=== PATIENT | male | born 1945 | race Caucasian/White ===

== ENCOUNTER 2017-02-15 13:38 | Inpatient (IN) ==
[2017-02-15] MEDS ORDERED: Ipratropium/Albuterol Neb 3 ML ONE (13:49)
[2017-02-15] MEDS ORDERED: Ipratropium/Albuterol Neb 3 ML IH ONE (13:49)
[2017-02-15] MEDS ORDERED: Aspirin 81 MG TAB.CHEW PO ONE (13:51)
--- NOTE | 2017-02-15 14:01 | Emergency Department Note ---
Disposition Clinical Impression: Hypoxia Pulmonary embolism Qualifiers: Pulmonary embolism type: other Chronicity: acute Acute cor pulmonale presence: without acute cor pulmonale Qualified Code(s): I26.99 - Other pulmonary embolism without acute cor pulmonale Disposition: Admitted As Inpatient Condition: Serious Referrals: Gurwinder Lopez MD [Primary Care Provider] - Forms: ED Satisfaction Letter Time of Disposition: 19:28 SOB HPI - General Chief Complaint: ED Shortness of Breath/Dyspnea Stated Complaint: ARTEMIO Time Seen by Provider: 02/15/17 13:41 Nursing Notes Reviewed: Yes Vital Signs Reviewed: Yes - History of Present Illness Patient is 71-year-old male presents secondary to 3 days of difficulty breathing and shortness of breath without chest pain. EMS states patient was hypoxic at 72% on room air. Patient was placed on oxygen via nonrebreather and O2 sats were increased to 100%. Patient has a history of CABG 5 months ago at [facility] by Dr. Sanchez cardiothoracic surgeon. - Related Data Home Medications Medication Instructions Recorded Confirmed Aspirin Enteric Coated [Aspirin EC] 81 mg PO DAILY 02/15/17 02/15/17 Atorvastatin Calcium [Lipitor] 80 mg PO HS 02/15/17 02/15/17 Buspirone HCl [Buspar] 5 mg PO BID 02/15/17 02/15/17 Famotidine [Pepcid] 40 mg PO DAILY 02/15/17 02/15/17 Finasteride [Proscar] 5 mg PO DAILY 02/15/17 02/15/17 Isosorbide MONOnitrate (24 HR) 60 mg PO DAILY 02/15/17 02/15/17 [Imdur] L. Acidophilus/Pectin, [place] 1 each PO DAILY 02/15/17 02/15/17 [Acidophilus Probiotic Capsule] Metoprolol XL (24 HR) Succ [Toprol 50 mg PO DAILY 02/15/17 02/15/17 XL] Mirtazapine [Remeron] 15 mg PO HS 02/15/17 02/15/17 Pantoprazole Sodium [Protonix] 40 mg PO DAILY 02/15/17 02/15/17 Sertraline [Zoloft] 100 mg PO DAILY 02/15/17 02/15/17 Sulfasalazine [Azulfidine] 1,000 mg PO TID 02/15/17 02/15/17 Tamsulosin [Flomax] 0.4 mg PO DAILY 02/15/17 02/15/17 clonazePAM [Klonopin] 0.5 mg PO BID PRN 02/15/17 02/15/17 Allergies Allergy/AdvReac Type Severity Reaction Status Date / Time No Known Allergies Allergy Verified 11/26/16 14:43 All systems ED: reviewed and negative except as stated. Review of Systems: As Per HPI Constitutional: Denies: fever, chills, weakness Eyes: Denies: vision change ENT ED: Denies: congestion Cardiovascular: Reports: dyspnea on exertion. Denies: chest pain, palpitations Respiratory: Denies: cough Gastrointestinal: Denies: abdominal pain, nausea, vomiting, diarrhea, hematemesis, melena, hematochezia Genitourinary: Denies: urgency Musculoskeletal: Denies: back pain, neck pain Neurological: Denies: headache Psychiatric: Reports: anxiety Endocrine: Reports: fatigue Past Medical History - Past Medical History Attestation: Yes The following information was validated with the patient. Medical history: Reports: coronary artery disease, hyperlipidemia, hypertension , myocardial infarction Surgical history: Reports: coronary bypass (CABG) Psychiatric history: Reports: depression - Social History Smoking Status: Former smoker Smokeless Tobacco Status: No Alcohol use: Reports: none Drug use: Reports: none Physical Exam Vital Signs Temperature 98.6 F 02/15/17 13:45 Pulse Rate 79 02/15/17 13:45 Respiratory Rate 20 02/15/17 13:45 Blood Pressure 108/75 02/15/17 13:45 O2 Sat by Pulse Oximetry 97 02/15/17 13:45 Temperature 98.6 F 02/15/17 13:45 Pulse Rate 67 02/15/17 15:03 Respiratory Rate 12 02/15/17 15:03 Blood Pressure 156/83 02/15/17 15:03 O2 Sat by Pulse Oximetry 94 02/15/17 15:03 Oxygen Delivery Oxygen Delivery Nasal Cannula 31-year-old male who is alert and oriented 3 and is in acute distress secondary to shortness of breath. Patient has conversational dyspnea and O2. Patient's O2 sat shows 100% on nonrebreather. Patient has no chest wall tenderness. Patient has no pallor. Patient has no diaphoresis. he is nontoxic appearing. Patient has no lip cyanosis. - General Limitations: no limitations General appearance: alert - Head Head exam: atraumatic, normocephalic, normal inspection - Eye Eye exam: Present: normal appearance, PERRL, EOMI - ENT ENT exam: normal exam, normal oropharynx, mucous membranes moist - Neck Neck exam: Present: normal inspection, full ROM, trachea midline. Absent: tenderness, lymphadenopathy - Chest Chest inspection: Present: normal inspection, symmetric chest wall rise Course Vital Signs Temperature 98.6 F 02/15/17 13:45 Pulse Rate 79 02/15/17 13:45 Respiratory Rate 20 02/15/17 13:45 Blood Pressure 108/75 02/15/17 13:45 O2 Sat by Pulse Oximetry 97 02/15/17 13:45 Temperature 98.6 F 02/15/17 13:45 Pulse Rate 65 02/15/17 19:27 Respiratory Rate 16 02/15/17 16:58 Blood Pressure 155/82 02/15/17 19:27 O2 Sat by Pulse Oximetry 93 02/15/17 19:27 Oxygen Delivery Oxygen Delivery Room Air Shortness of Breath/Dyspnea - [facility] Narrative Medical decision making narrative: Patient presents with sudden onset of shortness of breath over the past 3 days by EMS today secondary to severe hypoxia 72% O2 sat. He has a history of CABG and appears short of breath on exam. Patient has no history of COPD as heavily concerning for PE, aortoenteric fistula, ACS/WV, heart failure. CT angiogram of chest was ordered which showed a large clot burden PE. Echocardiogram was ordered, in the meantime we spoke to magazine filler Dr. Herrera who came and examined the patient and states that as long as patient does not show any heart strain on echo then patient can be started on heparin and be admitted to 2 . Patient's labs show an anemia but his hemoglobin of 12.8 which is much better than previous hemoglobin level. Patient has no other abnormalities CBC, BMP and has a negative troponin as well. No signs ischemia on EKG Imaging results: Echo: Echocardiogram 02/15/17 15:20 Impressions: Technically challenging study with suboptimal windows. Overall, LV systolic function appears low normal, EF 50%. PLAX measurements were not well obtained. Visually, there is increased LV wall thickness. Mild left ventricular diastolic dysfunction. RV is poorly visualized. Function may be normal (normal function in PLAX view, normal Lat S [place]) but is not well visualized in the apical or subcostal views. Size is not well evaluated. Mild aortic regurgitation. Mild tricuspid regurgitation. Mild pulmonary hypertension. Patient started on heparin bolus and drip, and accepts decision for admission Patient has been accepted for admission by hospitalist Dr. Stevens to 2 N. 60 minutes of critical care time spent on this admission. - Lab Data Lab results reviewed: Yes I reviewed the patient's lab results. Lab results narrative: Short CBC 02/15/17 Range/Units 13:55 WBC 8.5 (4.3-11.1) K/mcL Hgb 12.4 L (12.9-16.9) g/dL Hct 38.4 (37.5-50.1) % Plt Count 257 (140-400) K/mcL Neutrophils # 6.3 (1.6-8.9) K/mcL BMP 02/15/17 Range/Units 13:55 Sodium 136 (136-145) mEq/L Potassium 4.0 (3.5-4.5) mEq/L Chloride 100 (98-109) mEq/L Carbon Dioxide 30 H (19-29) mEq/L BUN 11 (8-26) mg/dL Creatinine 1.13 (0.72-1.25) mg/dL Glucose 113 H (70-99) mg/dL Calcium 9.4 (8.6-10.8) mg/dL Cardiac Enzymes 02/15/17 Range/Units 13:55 Troponin I 0.02 (0-0.03) ng/mL Urine 02/15/17 Range/Units 14:06 Urine Color Yellow (Yellow) Urine Clarity Cloudy A (Clear) Urine pH 7.0 (5.0-8.0) pH Units Ur Specific [place] 1.017 (1.010-1.025) Urine Protein Negative (Neg-Trace) mg/dL Urine Glucose (UA) Normal (Normal) mg/dL Result diagrams: 02/15/17 13:55 02/15/17 13:55 Lab Results 02/15/17 02/15/17 02/15/17 Range/Units 13:55 13:55 13:55 WBC 8.5 (4.3-11.1) K/mcL RBC 4.33 (4.19-5.50) M/mcL Hgb 12.4 L (12.9-16.9) g/dL Hct 38.4 (37.5-50.1) % MCV 88.7 (83.0-100.0) fL MCH 28.6 (28.0-33.3) pg MCHC 32.3 (31.6-35.5) g/dL RDW 15.6 H (11.5-14.5) % Plt Count 257 (140-400) K/mcL MPV 9.6 (9.4-12.4) fL Immature Gran % 0.9 (0-4) % Seg Neutrophils % 73.8 % Lymphocytes % 13.0 % Monocytes % 9.7 % Eosinophils % 1.8 % Basophils % 0.8 % Neutrophils # 6.3 (1.6-8.9) K/mcL Lymphocytes # 1.1 (0.6-4.6) K/mcL Monocytes # 0.8 (0.0-1.3) K/mcL Eosinophils # 0.2 (0.0-0.6) K/mcL Basophils # 0.1 (0.0-0.2) K/mcL PT 12.3 H (9.4-12.1) Seconds INR 1.1 APTT 34.4 (26.0-36.0) Seconds Sodium 136 (136-145) mEq/L Potassium 4.0 (3.5-4.5) mEq/L Chloride 100 (98-109) mEq/L Carbon Dioxide 30 H (19-29) mEq/L BUN 11 (8-26) mg/dL Creatinine 1.13 (0.72-1.25) mg/dL Est GFR ( Amer) > 60 (> 60) Est GFR (Non-Af Amer) > 60 (> 60) BUN/Creatinine Ratio 10 (6-26) Glucose 113 H (70-99) mg/dL Calculated Osmolality 282 (280-300) Calcium 9.4 (8.6-10.8) mg/dL Troponin I (0-0.03) ng/mL B-Natriuretic Peptide (0-100) pg/mL Urine Color (Yellow) Urine Clarity (Clear) Urine pH (5.0-8.0) pH Units Ur Specific [place] (1.010-1.025) Urine Protein (Neg-Trace) mg/dL Urine Glucose (UA) (Normal) mg/dL Urine Ketones (Negative) mg/dL Urine Blood (Negative) Urine Nitrite (Negative) Urine Bilirubin (Negative) Urine Urobilinogen (Normal) mg/dL Ur Leukocyte Esterase (Negative) Urine Microscopic RBC (0-3) per hpf Urine Microscopic WBC (0-3) per hpf Ur Squamous Epith Cells (None-Few) per lpf Urine Bacteria (None-Few) per hpf Hyaline Casts (None-Few) per lpf Ur Culture Indicated? (NO) 02/15/17 02/15/17 02/15/17 Range/Units 13:55 13:55 14:06 WBC (4.3-11.1) K/mcL RBC (4.19-5.50) M/mcL Hgb (12.9-16.9) g/dL Hct (37.5-50.1) % MCV (83.0-100.0) fL MCH (28.0-33.3) pg MCHC (31.6-35.5) g/dL RDW (11.5-14.5) % Plt Count (140-400) K/mcL MPV (9.4-12.4) fL Immature Gran % (0-4) % Seg Neutrophils % % Lymphocytes % % Monocytes % % Eosinophils % % Basophils % % Neutrophils # (1.6-8.9) K/mcL Lymphocytes # (0.6-4.6) K/mcL Monocytes # (0.0-1.3) K/mcL Eosinophils # (0.0-0.6) K/mcL Basophils # (0.0-0.2) K/mcL PT (9.4-12.1) Seconds INR APTT (26.0-36.0) Seconds Sodium (136-145) mEq/L Potassium (3.5-4.5) mEq/L Chloride (98-109) mEq/L Carbon Dioxide (19-29) mEq/L BUN (8-26) mg/dL Creatinine (0.72-1.25) mg/dL Est GFR ( Amer) (> 60) Est GFR (Non-Af Amer) (> 60) BUN/Creatinine Ratio (6-26) Glucose (70-99) mg/dL Calculated Osmolality (280-300) Calcium (8.6-10.8) mg/dL Troponin I 0.02 (0-0.03) ng/mL B-Natriuretic Peptide 228 H (0-100) pg/mL Urine Color Yellow (Yellow) Urine Clarity Cloudy A (Clear) Urine pH 7.0 (5.0-8.0) pH Units Ur Specific [place] 1.017 (1.010-1.025) Urine Protein Negative (Neg-Trace) mg/dL Urine Glucose (UA) Normal (Normal) mg/dL Urine Ketones Negative (Negative) mg/dL Urine Blood Negative (Negative) Urine Nitrite Negative (Negative) Urine Bilirubin Negative (Negative) Urine Urobilinogen Normal (Normal) mg/dL Ur Leukocyte Esterase Negative (Negative) Urine Microscopic RBC 0-3 (0-3) per hpf Urine Microscopic WBC 0-3 (0-3) per hpf Ur Squamous Epith Cells Moderate H (None-Few) per lpf Urine Bacteria None Seen (None-Few) per hpf Hyaline Casts None Seen (None-Few) per lpf Ur Culture Indicated? NO (NO) - Radiology Data Radiology results reviewed: Yes I reviewed the patient's radiology results. Chest CTA 02/15/17 13:53 IMPRESSION: 1. Large pulmonary emboli in the distal main right pulmonary artery extending into the lobar and segmental branches of the right upper, middle, and lower lobes. Smaller segmental and subsegmental emboli in the left upper and lower lobes. Mildly increased RV/LV ratio as can be seen with elevated right heart pressure. 2. Enlarged main pulmonary artery as can be seen with pulmonary arterial hypertension. 3. Status post CABG. 4. Calcified pleural plaquing in the right chest as can be seen with asbestos related pleural disease versus remote hemothorax or empyema. Associated mild right lung volume loss with scarring and/or atelectasis. Findings were discussed with Dr. Zev López of the [facility] emergency department at 3:09 pm on 02/15/2017. D/ / Flako Barrios MD / Flako Barrios MD Interpreting Provider: Flako Barrios MD Echocardiogram 02/15/17 15:20 Impressions: Technically challenging study with suboptimal windows. Overall, LV systolic function appears low normal, EF 50%. PLAX measurements were not well obtained. Visually, there is increased LV wall thickness. Mild left ventricular diastolic dysfunction. RV is poorly visualized. Function may be normal (normal function in PLAX view, normal Lat S [place]) but is not well visualized in the apical or subcostal views. Size is not well evaluated. Mild aortic regurgitation. Mild tricuspid regurgitation. Mild pulmonary hypertension. Left Ventricular Wall Motion: Rest Echo Findings The apex, apical inferior, mid inferior, basal inferior, apical anterior, mid anterior, basal anterior, mid anterior septal, mid inferior lateral, basal anterior septal and basal inferior lateral olivares were not visualized. All other wall segments showed normal motion. Findings: Study Quality * Technically challenging due to body habitus. ECG Findings * Normal sinus rhythm. Left Ventricle * PLAX measurements were not well obtained. Visually, there is increased LV wall thickness. * LVEF 50%. * Mild left ventricular diastolic dysfunction. Right Ventricle * RV is poorly visualized. Function may be normal (normal function in PLAX view, normal Lat S [place]) but is not well visualized in the apical or subcostal views. Size is not well evaluated. Left Atrium * Normal left atrial size. Right Atrium * Normal right atrial size. Aortic Valve * Mild aortic regurgitation. * Aortic valve not well visualized. * No aortic stenosis. Mitral Valve * Normal mitral valve structure. * No mitral regurgitation. * No mitral stenosis. Tricuspid Valve * Tricuspid valve not well visualized. * Mild tricuspid regurgitation. * Estimated RA pressure is 3 mmHg. * Estimated RVSP is 46 mmHg. * Mild pulmonary hypertension. Pulmonic Valve * Pulmonic valve is not well visualized. * No pulmonic stenosis. * Trace pulmonic regurgitation. Pulmonary Artery * Pulmonary artery not well visualized. Aorta * Normally sized aortic root. Pericardium * There is no pericardial effusion present. Interatrial Septum * No evidence of PFO by color Doppler. IVC * Normal IVC dimensions and inspiratory collapse. - EKG Data EKG attestation: Yes I reviewed and interpreted this EKG. EKG results narrative: EKG taken 02/15/2017 at 1343 hrs. shows sinus rhythm with first-degree AV block at a rate of 73 beats recorded patient have T-wave inversions in V1, V2 and V3 not seen on previous EKG taken 09/19/2016. Both EKGs show right bundle branch block. Attestation Statement - Attestation Attestation: I, Bjorn Engle DO, examined this patient [id number] and my medical decision-making was reviewed with Dr. Zev López, Resident Physician. I agree with the documented findings, disposition and treatment plan as described except to the extent set forth below. Please see my progress notes for details.
[2017-02-15 14:05] LABS: Basophils # 0.1 K/mcL (0.0-0.2); Basophils % 0.8 %; Eosinophils # 0.2 K/mcL (0.0-0.6); Eosinophils % 1.8 %; Hematocrit 38.4 % (37.5-50.1); Hemoglobin 12.4 g/dL (12.9-16.9); Immature Granulocytes % 0.9 % (0-4); Lymphocytes # 1.1 K/mcL (0.6-4.6); Mean Corpuscular HGB Conc 32.3 g/dL (31.6-35.5); Mean Corpuscular Hemoglobin 28.6 pg (28.0-33.3); Mean Corpuscular Volume 88.7 fL (83.0-100.0); Mean Platelet Volume 9.6 fL (9.4-12.4); Monocytes # 0.8 K/mcL (0.0-1.3); Monocytes % 9.7 %; Neutrophils # 6.3 K/mcL (1.6-8.9); Platelet Count 257 K/mcL (140-400); Red Blood Count 4.33 M/mcL (4.19-5.50); Red Cell Distribution Width 15.6 % (11.5-14.5); Segmented Neutrophils % 73.8 %
[2017-02-15 14:10] LABS: INR 1.1; Prothrombin Time 12.3 Seconds (9.4-12.1)
[2017-02-15 14:13] LABS: Activated Partial Thrombo Time 34.4 Seconds (26.0-36.0)
--- NOTE | 2017-02-15 14:16 | Emergency Department Note ---
START Narrative - START START: 71-year-old male 5 months status post open heart procedure presents today for shortness of breath and hypoxia home. Symptoms began coming on over the last several days. Multiple life stressors involved including is currently having cancer treatment. See detailed documentation of this. Patient has not been doing cardiac rehabilitation. His home by EMS today with a pulse ox of 78% . Based on nonrebreather and the pulse ox came up to 100%. Denies any chest pain fevers chills nausea vomiting or diarrhea. Denies headache or vision change. No trauma or injuries. No new medications. Patient was concerned secondary to the increased work of breathing and wanted evaluation. Physical exam shows a well-appearing male does appear to be in some mild respiratory distress with mild conversational dyspnea. Lungs are clear heart is regular. Abdomen is soft nontender nondistended no pulsatile area noted. Patient was offered stimuli difficulty. Positionally the patient does have dyspnea and orthopnea. Breathing treatments to be provided at this time as well as cardiac evaluation. Initial EKG was interpreted by myself showing several abnormalities with a computer read the possibility of an anterior lateral myocardial infarction but after detailed review from previous EKG on 09/19/16 patient has what appears to be similar morphology there is no visible signs of acute ST segment elevation or reciprocal depression noted on evaluation at this time. Patient is denying chest pain this time his main complaint was shortness of breath. We will continue to monitor the emergency room and treat symptoms as appropriate dispositional mostly be admission for definitive management. See detailed documentation the physical exam, medical intervention, medical decision-making, consultations and critical care and disposition and the resident physician's note 1500 Patient found to have massive PE with proximal occlusion of the right pulmonary artery as well as several segmental branches in the left upper and lower lobes of the lung. Consultation postoperative the certified personal chef at this time. Hemodynamics been stable here patient's pulse ox is been regulated normal his breathing is controlled and unlabored. There is concern for right heart strain based on the evaluation by CT angiography. Stat echocardiogram ordered as well as initial conversation with the pharmacist about TPA dosing for PE. Clinically patient is resting comfortably at this point will determine PE treatment with thrombolytics versus heparinization after conversation with the certified personal chef is completed. Patient will be staying in the hospital after treatment course is completed. 1600 ICU attending in the emergency room this time discussing the presentation symptoms with the family. He did not recommend TPA at this time. He is comfortable with the patient starting on heparin and staying at this facility. He only recommended TPA at the patient had hemodynamic instability. Patient is otherwise resting comfortably in the bed. We will continue to monitor here. Echo still pending. He will also make that determination after the echo is resulted. 1734 Echo shows no significant functional dilation of the right ventricle. Clinically difficult as based on the results. Patient will be admitted to the hospitalist at this time for definitive treatment course.
[2017-02-15 14:17] LABS: BUN/Creatinine Ratio 10 (6-26); Blood Urea Nitrogen 11 mg/dL (8-26); Calcium 9.4 mg/dL (8.6-10.8); Carbon Dioxide 30 mEq/L (19-29); Chloride 100 mEq/L (98-109); Glucose 113 mg/dL (70-99); Osmolality,Calculated 282 (280-300); Sodium 136 mEq/L (136-145); eGFR For African Americans > 60 (> 60); eGFR For Non-African Americans > 60 (> 60)
[2017-02-15 14:23] LABS: Bilirubin,Urine Negative (Negative); Blood,Urine Negative (Negative); Clarity,Urine Cloudy (Clear); Color,Urine Yellow (Yellow); Glucose,Urine (UA) Normal (Normal); Ketones,Urine Negative (Negative); Leukocyte Esterase,Urine Negative (Negative); Nitrite,Urine Negative (Negative); Protein,Urine Negative (Neg-Trace); Specific Gravity,Urine 1.017 (1.010-1.025); Urobilinogen,Urine Normal (Normal)
[2017-02-15 14:25] LABS: Bacteria,Urine None Seen per hpf (None-Few); Hyaline Casts,Urine None Seen per lpf (None-Few); RBC,Urine 0-3 per hpf (0-3); Squamous Epithelial Cell,Urine Moderate per lpf (None-Few); WBC,Urine 0-3 per hpf (0-3)
[2017-02-15] MEDS ORDERED: *HR* Heparin 5,000 UNIT/ML VIAL IVP ONE (15:00)
[2017-02-15] MEDS ORDERED: Heparin 25,000 UNIT/500 ML D5W 25,000 UNIT/500 ML MLS IVC SCH (15:00)
[2017-02-15] MEDS ORDERED: *HR* Heparin 5,000 UNIT/ML VIAL IVP PRN ×2 (20:55)
[2017-02-15] MEDS ORDERED: Naloxone 0.4 MG/ML INJ IVP PRN (21:19)
--- NOTE | 2017-02-15 22:23 | Internal Med History&Physical ---
<Wilton Capps - Last Filed: 02/15/17 22:58> Date of Encounter: 02/15/17 Time of Encounter: 21:30 Assessment and Plan (1) Pulmonary embolism Current visit: Yes Status: Acute CTA of the test demonstrated large clot burden PE. -Echocardiogram was ordered; did not show any signs of right heart strain. EF 50%. Increased L ventricular wall thickness. Mild L ventricular diastolic dysfunction. EKG demonstrated right bundle branch block. -Patient seen by aircraft engine technician Dr. Herrera. Per his recommendation, patient can be started on heparin as long as echo does not demonstrate R heart strain. -Patient has been started on heparin bolus and drip. -Patient will be admitted to hospital, and will be kept on continuous telemetry. -Doppler ultrasound of both lower extremities. Qualifiers: Pulmonary embolism type: other Chronicity: acute Acute cor pulmonale presence: without acute cor pulmonale Qualified Code(s): I26.99 - Other pulmonary embolism without acute cor pulmonale (2) Hypertension Current visit: Yes Status: Acute Patient has known history of hypertension. -Patient's blood pressure and admission was 156/83. -Resume home medications. -Continue to closely monitor vital signs. Qualifiers: Qualified Code(s): I10 - Essential (primary) hypertension (3) Hypoxia Current visit: Yes Status: Acute Upon arrival of EMS, patient's oxygen saturation was 72% on room air. -Patient's oxygen saturation improved to 100% after being placed on a nonrebreather. -Continue oxygen via nasal cannula. -Patient's vital signs are currently stable. -Closely monitor patient's condition. Internal Medicine - H&P: HPI Chief complaint: Shortness of breath History of present illness: Mr. Holley is a 71 year old male with past medical history of coronary artery disease, hyperlipidemia, hypertension, and myocardial infarction who presented to to the hospital with chief complaint of shortness of breath without chest pain of 3 days' duration. He states that he has multiple life stressors at the present time, including his currently receiving cancer treatment. Patient states that on Monday, he had been sitting on his tractor all day mowing grass. When he came into the house he felt fine. He states that his shortness of breath started on Monday morning, and progressively got worse. He took his to the doctor, and could barely get through the day. EMS states that when they arrived, patient was hypoxic at 72% room air. He was placed on oxygen via nonrebreather and his O2 sats went up to 100%. Patient does have a history of CABG placement 5 months ago. He currently denies having any chest pain, shortness of breath, fever, chills, or dizziness. He states that his shortness of breath is primarily exacerbated by exertion and is not relieved by anything but rest. He denies ever having symptoms like this before. Patient denies a history of clotting disorders and denies family history of clotting issues. Patient is currently on oxygen and has no complaints at this time. Past Med Surg Social Fam HX - Past Medical History Medical history: coronary artery disease, hyperlipidemia, hypertension, myocardial infarction Psychiatric history: depression - Past Surgical History Surgical History: coronary bypass (CABG) - Social History Smoking Status: Former smoker Smokeless Tobacco Status: No Alcohol use: none Drug use: none Internal Medicine - H&P: Meds Aspirin Enteric Coated [Aspirin EC] 81 mg PO DAILY 02/15/17 [History] Atorvastatin Calcium [Lipitor] 80 mg PO HS 02/15/17 [History] Buspirone HCl [Buspar] 5 mg PO BID 02/15/17 [History] Famotidine [Pepcid] 40 mg PO DAILY 02/15/17 [History] Finasteride [Proscar] 5 mg PO DAILY 02/15/17 [History] Isosorbide MONOnitrate (24 HR) [Imdur] 60 mg PO DAILY 02/15/17 [History] L. Acidophilus/Pectin, [place] [Acidophilus Probiotic Capsule] 1 each PO DAILY [History] Metoprolol XL (24 HR) Succ [Toprol XL] 50 mg PO DAILY 02/15/17 [History] Mirtazapine [Remeron] 15 mg PO HS 02/15/17 [History] Pantoprazole Sodium [Protonix] 40 mg PO DAILY 02/15/17 [History] Sertraline [Zoloft] 100 mg PO DAILY 02/15/17 [History] Sulfasalazine [Azulfidine] 1,000 mg PO TID 02/15/17 [History] Tamsulosin [Flomax] 0.4 mg PO DAILY 02/15/17 [History] clonazePAM [Klonopin] 0.5 mg PO BID PRN 10/18/17 [History] 3 Allergy/AdvReac Type Severity Reaction Status Date / Time No Known Allergies Allergy Verified 11/26/16 14:43 All Systems PM: A 10-system review of systems was performed and is negative for pertinent findings except as documented above in the HPI. - Constitutional Constitutional: no chills, no fever(s), no night sweats - EENT Nose, mouth and throat: no hoarseness, no neck pain - Cardiovascular Cardiovascular ROS IM: dyspnea on exertion, no chest pain, no diaphoresis, no dyspnea, no lightheadedness, no palpitations, no syncope - Respiratory Respiratory: no cough, no dyspnea, no wheezing, no excessive phlegm production - Gastrointestinal Gastrointestinal: no abdominal pain, no diarrhea, no hematemesis, no hematochezia, no melena, no nausea, no vomiting - Musculoskeletal Musculoskeletal ROS IM: no numbness, no tingling - Integumentary Integumentary IM: no rash, no unusual bruising - Neurological Neurological ROS: no focal weakness, no numbness, no tingling, no tremor(s) - Hematologic/Lymphatic Hematologic/Lymphatic: no easy bruising - Constitutional Vitals: Temp Pulse Resp BP Pulse Ox 98.8 F 63 19 170/77 94 02/15/17 20:29 02/15/17 20:30 02/15/17 20:29 02/15/17 20:29 02/15/17 20:29 General appearance: Present: A&O X 3, pleasant, no acute distress, answers questions appropriately - Head Head exam: Present: atraumatic, normal inspection, normocephalic - Neck Neck exam general surgery: Present: supple, trachea midline. Absent: lymphadenopathy - Respiratory Respiratory exam: Present: CTAB. Absent: accessory muscle use, rales, rhonchi, wheezes - Cardiovascular Cardiovascular exam: Present: RRR, +S1, +S2. Absent: diastolic murmur, gallop, rubs, systolic murmur - GI/Abdominal GI/Abdominal exam: Present: normal bowel sounds, soft, no peritoneal signs. Absent: distended, tenderness - Extremities Exam Extremities exam: Present: warm, radial pulses palpable and symmetrical. Absent : calf tenderness, cyanotic, pedal edema - Skin Skin exam: Present: dry, intact Internal Med - H&P Results - Labs CBC & Chem 7: 02/15/17 22:45 02/15/17 13:55 <Leslie Castellanos - Last Filed: 02/16/17 03:16> Date of Encounter: 02/16/17 Internal Medicine - H&P: HPI History of present illness: Mr. Holley is a 71 year old male All Systems PM: A 10-system review of systems was performed and is negative for pertinent findings except as documented above in the HPI. - Constitutional Vitals: Temp Pulse Resp BP Pulse Ox 98.4 F 63 18 151/76 95 02/15/17 23:09 02/15/17 23:09 02/15/17 23:09 02/15/17 23:09 02/15/17 23:09 Internal Med - H&P Results - Labs CBC & Chem 7: 02/15/17 22:45 02/15/17 13:55 Labs: Short CBC 02/15/17 Range/Units 22:45 WBC 9.6 (4.3-11.1) K/mcL Hgb 11.7 L (12.9-16.9) g/dL Hct 35.5 L (37.5-50.1) % Plt Count 250 (140-400) K/mcL - Attending Attestation I have seen and examined the patient independently. I have discussed with resident Dr Capps regarding the management plan. Agree with the documentation. Patient presented with shortness of breath. CTA shows bilateral PE. Reason of PE probably due to long-term sitting on the tractor. Pulmonology consult appreciated. Heparin drip was started. Patient still needed 4 L nasal cannula oxygen to maintain saturation. Patient is at high risk because of heparin drip , need close monitoring.
[2017-02-15] MEDS ORDERED: Mirtazapine 15 MG TABLET PO ONE (22:31)
[2017-02-15] MEDS: clonazePAM 0.5 MG TABLET PO PRN (22:43)
[2017-02-15 22:52] LABS: Hematocrit 35.5 % (37.5-50.1); Hemoglobin 11.7 g/dL (12.9-16.9); Mean Corpuscular Hemoglobin 28.8 pg (28.0-33.3); Mean Corpuscular Volume 87.4 fL (83.0-100.0); Mean Platelet Volume 9.8 fL (9.4-12.4); Platelet Count 250 K/mcL (140-400); Red Blood Count 4.06 M/mcL (4.19-5.50); Red Cell Distribution Width 15.6 % (11.5-14.5)
[2017-02-15 23:06] LABS: INR 1.2; Prothrombin Time 13.3 Seconds (9.4-12.1)
[2017-02-15 23:31] LABS: Activated Partial Thrombo Time 215.8 Seconds (26.0-36.0)
[2017-02-16] MEDS: Heparin 25,000 UNIT/500 ML D5W 25,000 UNIT/500 ML MLS IVC SCH ×2 (05:02→11:44)
[2017-02-16 07:08] LABS: BUN/Creatinine Ratio 10 (6-26); Blood Urea Nitrogen 10 mg/dL (8-26); Calcium 9.1 mg/dL (8.6-10.8); Carbon Dioxide 25 mEq/L (19-29); Chloride 103 mEq/L (98-109); Glucose 142 mg/dL (70-99); Magnesium 1.9 mg/dL (1.6-2.6); Osmolality,Calculated 283 (280-300); Potassium 4.3 mEq/L (3.5-4.5); Sodium 136 mEq/L (136-145); eGFR For African Americans > 60 (> 60); eGFR For Non-African Americans > 60 (> 60)
[2017-02-16 07:39] LABS: INR 1.2; Prothrombin Time 12.5 Seconds (9.4-12.1)
[2017-02-16 07:43] LABS: Activated Partial Thrombo Time 84.2 Seconds (26.0-36.0)
[2017-02-16 07:44] LABS: Basophils # 0.1 K/mcL (0.0-0.2); Basophils % 0.6 %; Eosinophils # 0.3 K/mcL (0.0-0.6); Eosinophils % 2.8 %; Hematocrit 38.1 % (37.5-50.1); Hemoglobin 12.1 g/dL (12.9-16.9); Immature Granulocytes % 0.6 % (0-4); Lymphocytes # 1.4 K/mcL (0.6-4.6); Lymphocytes % 14.6 %; Mean Corpuscular HGB Conc 31.8 g/dL (31.6-35.5); Mean Corpuscular Volume 88.2 fL (83.0-100.0); Mean Platelet Volume 10.3 fL (9.4-12.4); Monocytes # 0.9 K/mcL (0.0-1.3); Neutrophils # 6.8 K/mcL (1.6-8.9); Platelet Count 266 K/mcL (140-400); Red Blood Count 4.32 M/mcL (4.19-5.50); Red Cell Distribution Width 15.7 % (11.5-14.5); Segmented Neutrophils % 72.4 %
[2017-02-16] MEDS: Aspirin Enteric Coated 81 MG Tablet PO SCH (09:13)
[2017-02-16] MEDS: Lactobacillus 1 EACH CAP.SPRINK PO SCH (09:13)
[2017-02-16] MEDS: Metoprolol XL (24 HR) Succ 50 MG TAB.ER.24H PO SCH (09:13)
[2017-02-16] MEDS: Isosorbide MONOnitrate (24 HR) 60 MG TAB.ER.24H PO SCH (09:13)
[2017-02-16] MEDS: sulfaSALAzine 500 MG TABLET PO SCH ×3 (09:14→19:55)
[2017-02-16] MEDS: Finasteride 5 MG TABLET PO SCH (09:14)
[2017-02-16] MEDS: Famotidine 20 MG TABLET PO SCH (09:14)
--- NOTE | 2017-02-16 09:31 | Internal Med Progress Note ---
Date of Encounter: 02/16/17 Time of Encounter: 09:31 - Assessment and plan (1) Proctitis Current Visit: Yes Status: Chronic Assessment and plan: Patient reports a hx of colitis/proctitis, he is not having any flare at this time, we have no records in our system Will continue to monitor (2) Acute respiratory failure with hypoxia Current Visit: Yes Status: Acute Assessment and plan: Secondary to PE Continue supplemental O2 (3) Pulmonary embolism Current Visit: Yes Status: Acute Assessment and plan: Acute. Unprovoked. Bilateral. No heart strain. Continue heparin infusion Patient eductad on NOAs and Warfarin, choice is Warafrin for now due to hx of IBD (No prior hx of GIB but patient is at risk) Start warfarin tonight Continue to monitor ECHO and CTA noted Qualifiers: Pulmonary embolism type: other Chronicity: acute Acute cor pulmonale presence: without acute cor pulmonale Qualified Code(s): I26.99 - Other pulmonary embolism without acute cor pulmonale (4) CAD (coronary artery disease) Current Visit: Yes Status: Chronic Assessment and plan: no cp Continue home meds Qualifiers: Coronary Disease-Associated Artery/Lesion type: [place] artery [place] vs. transplanted heart: [place] heart Associated angina: without angina Qualified Code(s): I25.10 - Atherosclerotic heart disease of [place] coronary artery without angina pectoris (5) Hypertension Current Visit: Yes Status: Chronic Assessment and plan: Uncontrolled for , continue home meds, increase toprol prn Qualifiers: Hypertension type: essential hypertension Qualified Code(s): I10 - Essential (primary) hypertension - Subjective Interval history: Initial eval 71 M with PMH of CAD s/p CABG, HTN, HLD< IBD, admitted and being managed for bilateral subsegmental unprovoked PE without R heart strain, associated acute hypoxemic resp failure on supplemental O2 he is emotional about his diagnoses and worried about his who is being treated for cancer. He denies new complains - Constitutional Vitals: Temp Pulse Resp BP Pulse Ox 98.3 F 67 20 145/78 94 02/16/17 07:46 02/16/17 07:46 02/16/17 07:46 02/16/17 07:46 02/16/17 07:46 General appearance: Present: mild distress, A&O X 3, pleasant, answers questions appropriately - Head Head exam: Present: atraumatic, normocephalic - Eye Eye exam: Present: PERRL, conjuntiva pink, sclera anicteric Pupils: Present: PERRL - Neck Neck exam general surgery: Present: supple, trachea midline. Absent: lymphadenopathy - Respiratory Respiratory exam: Present: CTAB. Absent: accessory muscle use, rales, rhonchi, wheezes - Cardiovascular Cardiovascular exam: Present: RRR, +S1, +S2. Absent: diastolic murmur, gallop, rubs, systolic murmur - GI/Abdominal GI/Abdominal exam: Present: normal bowel sounds, soft, no peritoneal signs. Absent: distended, tenderness - Extremities Exam Extremities exam: Present: warm, radial pulses palpable and symmetrical. Absent : calf tenderness, cyanotic, pedal edema - Neurological Exam Neurological exam: Present: alert, CN II-XII intact, oriented X3, no focal deficits. Absent: pronater drift, facial droop, speech deficit - Skin Skin exam: Present: dry, intact Internal Medicine: Result - Labs CBC & Chem 7: 02/16/17 06:41 02/16/17 06:41 Labs: Short CBC 02/15/17 02/16/17 Range/Units 22:45 06:41 WBC 9.6 9.5 (4.3-11.1) K/mcL Hgb 11.7 L 12.1 L (12.9-16.9) g/dL Hct 35.5 L 38.1 (37.5-50.1) % Plt Count 250 266 (140-400) K/mcL Neutrophils # 6.8 (1.6-8.9) K/mcL BMP 02/16/17 06:41 Sodium 136 Potassium 4.3 Chloride 103 Carbon Dioxide 25 BUN 10 Creatinine 0.98 Glucose 142 H Calcium 9.1 Cardiac Enzymes 02/16/17 Range/Units 06:41 Troponin I 0.02 (0-0.03) ng/mL - ABG Interpretation ABG results: PT/INR, D-dimer PT 12.5 Seconds (9.4-12.1) H 02/16/17 06:41 Consult Discharge Plan - Plan Referrals: Gurwinder Lopez [Other] - 02/23/17 10:00 am (This is the new office. It is located beside [facility])
[2017-02-16] MEDS ORDERED: Warfarin perPT PO PRN (14:49)
--- NOTE | 2017-02-16 15:25 | Electrocardiograph Report ---
[place] [id number] Test Date: 2017-02-15 Pat Name: Grant Holley Department: 102 Room: 2N07 Gender: M Director Of Brand Marketing: : 1945 Requested By: Zev López Order Number: [id number] Reading MD: Vaughn Ramos Measurements Intervals [place] Rate: 73 P: 27 PA: 210 QRS: -16 QRSD: 110 T: 34 QT: 415 QTc: 440 Interpretive Statements SINUS RHYTHM WITH FIRST DEGREE AV BLOCK POSSIBLE LEFT ATRIAL ENLARGEMENT RBBB Electronically Signed On 02-16-2017 15:24:01 EDT by Vaughn Ramos
[2017-02-16] MEDS: *HR* Warfarin 5 MG TABLET PO SCH (17:26)
[2017-02-16] MEDS: Mirtazapine 15 MG TABLET PO SCH (21:59)
[2017-02-16] MEDS: clonazePAM 0.5 MG TABLET PO PRN (21:59)
[2017-02-17 03:59] LABS: Basophils # 0.1 K/mcL (0.0-0.2); Basophils % 0.7 %; Eosinophils # 0.3 K/mcL (0.0-0.6); Eosinophils % 3.9 %; Hematocrit 36.5 % (37.5-50.1); Hemoglobin 11.8 g/dL (12.9-16.9); Immature Granulocytes % 0.7 % (0-4); Lymphocytes # 1.6 K/mcL (0.6-4.6); Mean Corpuscular HGB Conc 32.3 g/dL (31.6-35.5); Mean Corpuscular Hemoglobin 28.9 pg (28.0-33.3); Mean Corpuscular Volume 89.2 fL (83.0-100.0); Monocytes # 0.9 K/mcL (0.0-1.3); Monocytes % 10.3 %; Neutrophils # 5.4 K/mcL (1.6-8.9); Platelet Count 251 K/mcL (140-400); Red Blood Count 4.09 M/mcL (4.19-5.50); Red Cell Distribution Width 15.6 % (11.5-14.5); Segmented Neutrophils % 65.4 %
[2017-02-17 04:02] LABS: INR 1.1; Prothrombin Time 12.3 Seconds (9.4-12.1)
[2017-02-17 04:16] LABS: BUN/Creatinine Ratio 12 (6-26); Blood Urea Nitrogen 12 mg/dL (8-26); Calcium 8.9 mg/dL (8.6-10.8); Carbon Dioxide 28 mEq/L (19-29); Chloride 103 mEq/L (98-109); Glucose 125 mg/dL (70-99); Osmolality,Calculated 285 (280-300); Potassium 3.9 mEq/L (3.5-4.5); Sodium 137 mEq/L (136-145); eGFR For African Americans > 60 (> 60); eGFR For Non-African Americans > 60 (> 60)
[2017-02-17] MEDS: Finasteride 5 MG TABLET PO SCH (07:37)
[2017-02-17] MEDS: Metoprolol XL (24 HR) Succ 50 MG TAB.ER.24H PO SCH (07:37)
[2017-02-17] MEDS: Heparin 25,000 UNIT/500 ML D5W 25,000 UNIT/500 ML MLS IVC SCH (07:37)
[2017-02-17] MEDS: Famotidine 20 MG TABLET PO SCH ×2 (07:37→21:53)
[2017-02-17] MEDS: Aspirin Enteric Coated 81 MG Tablet PO SCH (07:37)
[2017-02-17] MEDS: Lactobacillus 1 EACH CAP.SPRINK PO SCH (07:37)
[2017-02-17] MEDS: Isosorbide MONOnitrate (24 HR) 60 MG TAB.ER.24H PO SCH (07:37)
[2017-02-17] MEDS: sulfaSALAzine 500 MG TABLET PO SCH ×3 (07:37→21:53)
[2017-02-17] MEDS ORDERED: Isosorbide MONOnitrate (24 HR) 30 MG TAB.ER.24H PO ONE (08:40)
--- NOTE | 2017-02-17 09:13 | Internal Med Progress Note ---
Date of Encounter: 02/17/17 Time of Encounter: 09:11 - Assessment and plan (1) Proctitis Current Visit: Yes Status: Chronic Assessment and plan: Patient reports a hx of colitis/proctitis, he is not having any flare at this time, we have no records in our system Will continue to monitor (2) Acute respiratory failure with hypoxia Current Visit: Yes Status: Acute Assessment and plan: Secondary to PE Continue supplemental O2 (3) Pulmonary embolism Current Visit: Yes Status: Acute Assessment and plan: Acute. Unprovoked. Bilateral. No heart strain. Continue heparin infusion Patient educated on NOAs and Warfarin, choice is Warafrin for now due to hx of IBD (No prior hx of GIB but patient is at risk) Continue Warfarin, pharmacy to dose, monitor INR ECHO and CTA noted Ambulate as tolerated Doppler of LE pending Qualifiers: Pulmonary embolism type: other Chronicity: acute Acute cor pulmonale presence: without acute cor pulmonale Qualified Code(s): I26.99 - Other pulmonary embolism without acute cor pulmonale (4) CAD (coronary artery disease) Current Visit: Yes Status: Chronic Assessment and plan: no cp Continue home meds Qualifiers: Coronary Disease-Associated Artery/Lesion type: [place] artery [place] vs. transplanted heart: [place] heart Associated angina: without angina Qualified Code(s): I25.10 - Atherosclerotic heart disease of [place] coronary artery without angina pectoris (5) Hypertension Current Visit: Yes Status: Chronic Assessment and plan: Uncontrolled, increase imdur, continue toprol Qualifiers: Hypertension type: essential hypertension Qualified Code(s): I10 - Essential (primary) hypertension - Subjective Interval history: 71 M with PMH of CAD s/p CABG, HTN, HLD< IBD, admitted and being managed for bilateral subsegmental unprovoked PE without R heart strain, associated acute hypoxemic resp failure on supplemental O2 Seen and evaluated at bedside, no new events - Constitutional Vitals: Temp Pulse Resp BP Pulse Ox 98.9 F 70 18 157/79 94 02/17/17 07:52 02/17/17 07:52 02/17/17 07:52 02/17/17 07:52 02/17/17 07:52 General appearance: Present: A&O X 3, pleasant, no acute distress, answers questions appropriately - Head Head exam: Present: atraumatic, normocephalic - Eye Eye exam: Present: PERRL, conjuntiva pink, sclera anicteric Pupils: Present: PERRL - Neck Neck exam general surgery: Present: supple, trachea midline. Absent: lymphadenopathy - Respiratory Respiratory exam: Present: CTAB. Absent: accessory muscle use, rales, rhonchi, wheezes - Cardiovascular Cardiovascular exam: Present: RRR, +S1, +S2. Absent: diastolic murmur, gallop, rubs, systolic murmur - GI/Abdominal GI/Abdominal exam: Present: normal bowel sounds, soft, no peritoneal signs. Absent: distended, tenderness - Extremities Exam Extremities exam: Present: warm, radial pulses palpable and symmetrical. Absent : calf tenderness, cyanotic, pedal edema - Neurological Exam Neurological exam: Present: alert, CN II-XII intact, oriented X3, no focal deficits. Absent: pronater drift, facial droop, speech deficit - Skin Skin exam: Present: dry, intact Internal Medicine: Result - Labs CBC & Chem 7: 02/17/17 03:23 02/17/17 03:23 Labs: Short CBC 02/17/17 Range/Units 03:23 WBC 8.3 (4.3-11.1) K/mcL Hgb 11.8 L (12.9-16.9) g/dL Hct 36.5 L (37.5-50.1) % Plt Count 251 (140-400) K/mcL Neutrophils # 5.4 (1.6-8.9) K/mcL BMP 02/17/17 03:23 Sodium 137 Potassium 3.9 Chloride 103 Carbon Dioxide 28 BUN 12 Creatinine 1.03 Glucose 125 H Calcium 8.9 - ABG Interpretation ABG results: PT/INR, D-dimer PT 12.3 Seconds (9.4-12.1) H 02/17/17 03:23 Consult Discharge Plan - Plan Referrals: Gurwinder Lopez [Other] - 02/23/17 10:00 am (This is the new office. It is located beside of [facility])
[2017-02-17] MEDS ORDERED: clonazePAM 0.5 MG TABLET PO ONE (15:23)
[2017-02-17 15:29] LABS: Heparin anti-factor XA UFH 0.7 IU/mL (0.30-0.70)
[2017-02-17] MEDS: *HR* Warfarin 5 MG TABLET PO SCH (17:25)
[2017-02-17] MEDS: Mirtazapine 15 MG TABLET PO SCH (21:54)
[2017-02-17] MEDS: clonazePAM 0.5 MG TABLET PO PRN (21:58)
[2017-02-18] MEDS: clonazePAM 0.5 MG TABLET PO PRN ×2 (02:52→22:32)
[2017-02-18] MEDS: Heparin 25,000 UNIT/500 ML D5W 25,000 UNIT/500 ML MLS IVC SCH (06:21)
[2017-02-18 06:27] LABS: Basophils # 0.1 K/mcL (0.0-0.2); Basophils % 0.7 %; Eosinophils # 0.3 K/mcL (0.0-0.6); Eosinophils % 4.4 %; Hematocrit 35.7 % (37.5-50.1); Hemoglobin 11.4 g/dL (12.9-16.9); Immature Granulocytes % 0.8 % (0-4); Lymphocytes # 1.5 K/mcL (0.6-4.6); Lymphocytes % 19.5 %; Mean Corpuscular HGB Conc 31.9 g/dL (31.6-35.5); Mean Corpuscular Hemoglobin 28.6 pg (28.0-33.3); Mean Corpuscular Volume 89.5 fL (83.0-100.0); Mean Platelet Volume 10.1 fL (9.4-12.4); Monocytes # 0.7 K/mcL (0.0-1.3); Monocytes % 9.1 %; Platelet Count 254 K/mcL (140-400); Red Blood Count 3.99 M/mcL (4.19-5.50); Red Cell Distribution Width 15.3 % (11.5-14.5); Segmented Neutrophils % 65.5 %
[2017-02-18 06:30] LABS: INR 1.2; Prothrombin Time 12.9 Seconds (9.4-12.1)
[2017-02-18 06:41] LABS: BUN/Creatinine Ratio 12 (6-26); Blood Urea Nitrogen 12 mg/dL (8-26); Calcium 8.9 mg/dL (8.6-10.8); Carbon Dioxide 28 mEq/L (19-29); Chloride 103 mEq/L (98-109); Glucose 123 mg/dL (70-99); Osmolality,Calculated 289 (280-300); Potassium 4.2 mEq/L (3.5-4.5); Sodium 139 mEq/L (136-145); eGFR For African Americans > 60 (> 60); eGFR For Non-African Americans > 60 (> 60)
[2017-02-18] MEDS: sulfaSALAzine 500 MG TABLET PO SCH ×3 (07:53→21:15)
[2017-02-18] MEDS: Aspirin Enteric Coated 81 MG Tablet PO SCH (07:53)
[2017-02-18] MEDS: Finasteride 5 MG TABLET PO SCH (07:53)
[2017-02-18] MEDS: Metoprolol XL (24 HR) Succ 50 MG TAB.ER.24H PO SCH (07:53)
[2017-02-18] MEDS: Lactobacillus 1 EACH CAP.SPRINK PO SCH (07:53)
[2017-02-18] MEDS: Isosorbide MONOnitrate (24 HR) 30 MG TAB.ER.24H PO SCH (07:55)
--- NOTE | 2017-02-18 09:30 | Internal Med Progress Note ---
Date of Encounter: 02/18/17 Time of Encounter: 09:30 - Assessment and plan (1) Proctitis Current Visit: Yes Status: Chronic Assessment and plan: Patient reports a hx of colitis/proctitis/IBD, he is on sulfasalazine, he is not having any flare at this time, we have no records in our system Will continue to monitor (2) Acute respiratory failure with hypoxia Current Visit: Yes Status: Acute Assessment and plan: Secondary to PE Continue supplemental O2, wean as tolerated (3) Pulmonary embolism Current Visit: Yes Status: Acute Assessment and plan: Acute. Unprovoked. Bilateral. No heart strain. Continue heparin infusion and warfarin Patient educated on NOAs and Warfarin, choice is Warafrin for now due to hx of IBD (No prior hx of GIB but patient is at risk) Continue Warfarin, pharmacy to dose, monitor INR ECHO and CTA noted Ambulate as tolerated Doppler of LE shows DVT of GSV Qualifiers: Pulmonary embolism type: other Chronicity: acute Acute cor pulmonale presence: without acute cor pulmonale Qualified Code(s): I26.99 - Other pulmonary embolism without acute cor pulmonale (4) CAD (coronary artery disease) Current Visit: Yes Status: Chronic Assessment and plan: no cp Continue home meds Qualifiers: Coronary Disease-Associated Artery/Lesion type: [place] artery [place] vs. transplanted heart: [place] heart Associated angina: without angina Qualified Code(s): I25.10 - Atherosclerotic heart disease of [place] coronary artery without angina pectoris (5) Hypertension Current Visit: Yes Status: Chronic Assessment and plan: Controlled, continue Imdur anf toprol Qualifiers: Hypertension type: essential hypertension Qualified Code(s): I10 - Essential (primary) hypertension (6) DVT (deep venous thrombosis) Current Visit: Yes Status: Acute Assessment and plan: GSV DVT by Doppler Management as in PE Qualifiers: DVT location: lower extremity Affected thrombotic vein of extremity: other lower extremity vein Chronicity: acute Laterality: right Qualified Code(s) : I82.491 - Acute embolism and thrombosis of other specified deep vein of right lower extremity - Subjective Interval history: 71 M with PMH of CAD s/p CABG, HTN, HLD< IBD, admitted and being managed for bilateral subsegmental unprovoked PE without R heart strain, associated acute hypoxemic resp failure on supplemental O2 Seen and evaluated at bedside, no new events - Constitutional Vitals: Temp Pulse Resp BP Pulse Ox 98.5 F 60 16 160/72 93 02/18/17 07:21 02/18/17 08:01 02/18/17 07:21 02/18/17 07:21 02/18/17 07:21 General appearance: Present: A&O X 3, pleasant, no acute distress, answers questions appropriately - Head Head exam: Present: atraumatic, normocephalic - Eye Eye exam: Present: PERRL, conjuntiva pink, sclera anicteric Pupils: Present: PERRL - Neck Neck exam general surgery: Present: supple, trachea midline. Absent: lymphadenopathy - Respiratory Respiratory exam: Present: CTAB. Absent: accessory muscle use, rales, rhonchi, wheezes - Cardiovascular Cardiovascular exam: Present: RRR, +S1, +S2 (loud), systolic murmur. Absent: diastolic murmur, gallop, rubs - GI/Abdominal GI/Abdominal exam: Present: normal bowel sounds, soft, no peritoneal signs. Absent: distended, tenderness - Extremities Exam Extremities exam: Present: warm, radial pulses palpable and symmetrical. Absent : calf tenderness, cyanotic, pedal edema - Neurological Exam Neurological exam: Present: alert, CN II-XII intact, oriented X3, no focal deficits. Absent: pronater drift, facial droop, speech deficit - Skin Skin exam: Present: dry, intact Internal Medicine: Result - Labs CBC & Chem 7: 02/18/17 06:07 02/18/17 06:07 Labs: Short CBC 02/18/17 Range/Units 06:07 WBC 7.7 (4.3-11.1) K/mcL Hgb 11.4 L (12.9-16.9) g/dL Hct 35.7 L (37.5-50.1) % Plt Count 254 (140-400) K/mcL Neutrophils # 5.0 (1.6-8.9) K/mcL BMP 02/18/17 06:07 Sodium 139 Potassium 4.2 Chloride 103 Carbon Dioxide 28 BUN 12 Creatinine 1.02 Glucose 123 H Calcium 8.9 - ABG Interpretation ABG results: PT/INR, D-dimer PT 12.9 Seconds (9.4-12.1) H 02/18/17 06:07 Consult Discharge Plan - Plan Referrals: Beam,Gurwinder [Other] - 02/23/17 10:00 am (This is the new office. It is located beside of [facility])
[2017-02-18] MEDS: *HR* Warfarin 5 MG TABLET PO SCH (17:05)
[2017-02-18] MEDS: Mirtazapine 15 MG TABLET PO SCH (21:15)
[2017-02-18] MEDS: Famotidine 20 MG TABLET PO SCH (21:15)
[2017-02-19] MEDS: Heparin 25,000 UNIT/500 ML D5W 25,000 UNIT/500 ML MLS IVC SCH (02:37)
[2017-02-19] MEDS: clonazePAM 0.5 MG TABLET PO PRN ×2 (04:19→21:41)
[2017-02-19 06:13] LABS: Basophils % 0.5 %; Eosinophils # 0.3 K/mcL (0.0-0.6); Eosinophils % 4.3 %; Hematocrit 34.9 % (37.5-50.1); Hemoglobin 11.2 g/dL (12.9-16.9); Immature Granulocytes % 0.7 % (0-4); Lymphocytes # 1.5 K/mcL (0.6-4.6); Lymphocytes % 19.5 %; Mean Corpuscular HGB Conc 32.1 g/dL (31.6-35.5); Mean Corpuscular Hemoglobin 28.9 pg (28.0-33.3); Mean Corpuscular Volume 90.2 fL (83.0-100.0); Monocytes # 0.7 K/mcL (0.0-1.3); Monocytes % 9.3 %; Platelet Count 251 K/mcL (140-400); Red Blood Count 3.87 M/mcL (4.19-5.50); Red Cell Distribution Width 15.2 % (11.5-14.5); Segmented Neutrophils % 65.7 %
[2017-02-19 06:17] LABS: INR 1.7; Prothrombin Time 18.5 Seconds (9.4-12.1)
[2017-02-19 06:26] LABS: Hemoglobin A1C 4.5 %
[2017-02-19] MEDS: Lactobacillus 1 EACH CAP.SPRINK PO SCH (07:41)
[2017-02-19] MEDS: sulfaSALAzine 500 MG TABLET PO SCH ×3 (07:41→21:33)
[2017-02-19] MEDS: Finasteride 5 MG TABLET PO SCH (07:41)
[2017-02-19] MEDS: Metoprolol XL (24 HR) Succ 50 MG TAB.ER.24H PO SCH (07:41)
[2017-02-19] MEDS: Aspirin Enteric Coated 81 MG Tablet PO SCH (07:41)
[2017-02-19] MEDS: Isosorbide MONOnitrate (24 HR) 30 MG TAB.ER.24H PO SCH (07:41)
--- NOTE | 2017-02-19 08:32 | Internal Med Progress Note ---
Date of Encounter: 02/19/17 Time of Encounter: 08:30 - Assessment and plan (1) Proctitis Current Visit: Yes Status: Chronic Assessment and plan: Patient reports a hx of colitis/proctitis/IBD, he is on sulfasalazine, he is not having any flare at this time, we have no records in our system Will continue to monitor (2) Acute respiratory failure with hypoxia Current Visit: Yes Status: Acute Assessment and plan: Secondary to PE Continue supplemental O2, wean as tolerated (3) Pulmonary embolism Current Visit: Yes Status: Acute Assessment and plan: Acute. Unprovoked. Bilateral. No heart strain. Continue heparin infusion and warfarin Patient educated on NOAs and Warfarin, choice is Warafrin for now due to hx of IBD (No prior hx of GIB but patient is at risk) Continue Warfarin, pharmacy to dose, monitor INR INR 1.7 ECHO and CTA noted Ambulate as tolerated Doppler of LE shows DVT of GSV Qualifiers: Pulmonary embolism type: other Chronicity: acute Acute cor pulmonale presence: without acute cor pulmonale Qualified Code(s): I26.99 - Other pulmonary embolism without acute cor pulmonale (4) CAD (coronary artery disease) Current Visit: Yes Status: Chronic Assessment and plan: no cp Continue home meds Qualifiers: Coronary Disease-Associated Artery/Lesion type: [place] artery [place] vs. transplanted heart: [place] heart Associated angina: without angina Qualified Code(s): I25.10 - Atherosclerotic heart disease of [place] coronary artery without angina pectoris (5) Hypertension Current Visit: Yes Status: Chronic Assessment and plan: Controlled, continue Imdur anf toprol Qualifiers: Hypertension type: essential hypertension Qualified Code(s): I10 - Essential (primary) hypertension (6) DVT (deep venous thrombosis) Current Visit: Yes Status: Acute Assessment and plan: GSV DVT by Doppler Management as in PE Qualifiers: DVT location: lower extremity Affected thrombotic vein of extremity: other lower extremity vein Chronicity: acute Laterality: right Qualified Code(s) : I82.491 - Acute embolism and thrombosis of other specified deep vein of right lower extremity - Subjective Interval history: 71 M with PMH of CAD s/p CABG, HTN, HLD< IBD, admitted and being managed for bilateral subsegmental unprovoked PE without R heart strain, associated acute hypoxemic resp failure on supplemental O2 Seen and evaluated at bedside Complained of one episode of diarrhea, he is concerned about C.diff because his had an episode of C.diff before Reassured that we will continue to monitor and send for C.diff if he has multiple episodes of diarrhea INR today is 1.7 - Constitutional Vitals: Temp Pulse Resp BP Pulse Ox 97.6 F 61 15 156/70 97 02/19/17 06:42 02/19/17 07:53 02/19/17 06:42 02/19/17 06:42 02/19/17 06:42 General appearance: Present: A&O X 3, pleasant, no acute distress, answers questions appropriately - Head Head exam: Present: atraumatic, normocephalic - Eye Eye exam: Present: PERRL, conjuntiva pink, sclera anicteric Pupils: Present: PERRL - Neck Neck exam general surgery: Present: supple, trachea midline. Absent: lymphadenopathy - Respiratory Respiratory exam: Present: CTAB. Absent: accessory muscle use, rales, rhonchi, wheezes - Cardiovascular Cardiovascular exam: Present: RRR, +S1, +S2 (loud S2). Absent: diastolic murmur , gallop, rubs, systolic murmur - GI/Abdominal GI/Abdominal exam: Present: normal bowel sounds, soft, no peritoneal signs. Absent: distended, tenderness - Extremities Exam Extremities exam: Present: warm, radial pulses palpable and symmetrical. Absent : calf tenderness, cyanotic, pedal edema - Neurological Exam Neurological exam: Present: alert, CN II-XII intact, normal gait, oriented X3, no focal deficits. Absent: pronater drift, facial droop, speech deficit - Skin Skin exam: Present: dry, intact Internal Medicine: Result - Labs CBC & Chem 7: 02/19/17 05:09 02/18/17 06:07 Labs: Short CBC 02/19/17 Range/Units 05:09 WBC 7.6 (4.3-11.1) K/mcL Hgb 11.2 L (12.9-16.9) g/dL Hct 34.9 L (37.5-50.1) % Plt Count 251 (140-400) K/mcL Neutrophils # 5.0 (1.6-8.9) K/mcL - ABG Interpretation ABG results: PT/INR, D-dimer PT 18.5 Seconds (9.4-12.1) H 02/19/17 05:09 Consult Discharge Plan - Plan Referrals: Gurwinder Lopez [Other] - 02/23/17 10:00 am (This is the new office. It is located beside of [facility])
[2017-02-19] MEDS ORDERED: *HR* Warfarin 4 MG TABLET PO ONE (18:00)
[2017-02-19] MEDS: Famotidine 20 MG TABLET PO SCH (21:33)
[2017-02-19] MEDS: Mirtazapine 15 MG TABLET PO SCH (21:41)
[2017-02-20] MEDS: Heparin 25,000 UNIT/500 ML D5W 25,000 UNIT/500 ML MLS IVC SCH (04:03)
[2017-02-20 08:58] LABS: INR 2.4; Prothrombin Time 25.9 Seconds (9.4-12.1)
[2017-02-20] MEDS: Aspirin Enteric Coated 81 MG Tablet PO SCH (09:23)
[2017-02-20] MEDS: Lactobacillus 1 EACH CAP.SPRINK PO SCH (09:23)
[2017-02-20] MEDS: Isosorbide MONOnitrate (24 HR) 30 MG TAB.ER.24H PO SCH (09:26)
[2017-02-20] MEDS: sulfaSALAzine 500 MG TABLET PO SCH ×3 (09:27→20:15)
[2017-02-20] MEDS: Finasteride 5 MG TABLET PO SCH (09:27)
[2017-02-20] MEDS: Metoprolol XL (24 HR) Succ 50 MG TAB.ER.24H PO SCH (09:28)
--- NOTE | 2017-02-20 10:22 | Internal Med Progress Note ---
Date of Encounter: 02/20/17 Time of Encounter: 10:20 - Assessment and plan (1) Proctitis Current Visit: Yes Status: Chronic Assessment and plan: Patient reports a hx of colitis/proctitis/IBD, he is on sulfasalazine, he is not having any flare at this time, we have no records in our system Will continue to monitor (2) Acute respiratory failure with hypoxia Current Visit: Yes Status: Acute Assessment and plan: Secondary to PE Continue supplemental O2, wean as tolerated Ambulate for O2 qualification prior to discharge Patient is now on room air (3) Pulmonary embolism Current Visit: Yes Status: Acute Assessment and plan: Acute. Unprovoked. Bilateral. No heart strain. Continue heparin infusion and warfarin Patient educated on NOAs and Warfarin, choice is Warafrin for now due to hx of IBD (No prior hx of GIB but patient is at risk) Continue Warfarin, pharmacy to dose, monitor INR ECHO and CTA noted Ambulate as tolerated Doppler of LE shows DVT of GSV INR today 2.4 Qualifiers: Pulmonary embolism type: other Chronicity: acute Acute cor pulmonale presence: without acute cor pulmonale Qualified Code(s): I26.99 - Other pulmonary embolism without acute cor pulmonale (4) CAD (coronary artery disease) Current Visit: Yes Status: Chronic Assessment and plan: no cp Continue home meds Qualifiers: Coronary Disease-Associated Artery/Lesion type: [place] artery [place] vs. transplanted heart: [place] heart Associated angina: without angina Qualified Code(s): I25.10 - Atherosclerotic heart disease of [place] coronary artery without angina pectoris (5) Hypertension Current Visit: Yes Status: Chronic Assessment and plan: Controlled, continue Imdur anf toprol Qualifiers: Hypertension type: essential hypertension Qualified Code(s): I10 - Essential (primary) hypertension (6) DVT (deep venous thrombosis) Current Visit: Yes Status: Acute Assessment and plan: GSV DVT by Doppler Management as in PE Qualifiers: DVT location: lower extremity Affected thrombotic vein of extremity: other lower extremity vein Chronicity: acute Laterality: right Qualified Code(s) : I82.491 - Acute embolism and thrombosis of other specified deep vein of right lower extremity - Subjective Interval history: 71 M with PMH of CAD s/p CABG, HTN, HLD< IBD, admitted and being managed for bilateral subsegmental unprovoked PE without R heart strain, associated acute hypoxemic resp failure on supplemental O2 Seen and evaluated at bedside Hypoxia is improved at rest, patient has no new complains First therapeutic INR this morning. 2.4 - Constitutional Vitals: Temp Pulse Resp BP Pulse Ox 98.8 F 64 18 152/79 91 02/20/17 07:41 02/20/17 07:59 02/20/17 07:41 02/20/17 07:41 02/20/17 07:41 General appearance: Present: A&O X 3, pleasant, no acute distress, answers questions appropriately - Head Head exam: Present: atraumatic, normocephalic - Eye Eye exam: Present: PERRL, conjuntiva pink, sclera anicteric Pupils: Present: PERRL - Neck Neck exam general surgery: Present: supple, trachea midline. Absent: lymphadenopathy - Respiratory Respiratory exam: Present: CTAB. Absent: accessory muscle use, rales, rhonchi, wheezes - Cardiovascular Cardiovascular exam: Present: RRR, +S1, +S2 (loud S2). Absent: diastolic murmur , gallop, rubs, systolic murmur - GI/Abdominal GI/Abdominal exam: Present: normal bowel sounds, soft, no peritoneal signs. Absent: distended, tenderness - Extremities Exam Extremities exam: Present: warm, radial pulses palpable and symmetrical. Absent : calf tenderness, cyanotic, pedal edema - Neurological Exam Neurological exam: Present: alert, CN II-XII intact, oriented X3, no focal deficits. Absent: pronater drift, facial droop, speech deficit - Skin Skin exam: Present: dry, intact Internal Medicine: Result - Labs CBC & Chem 7: 02/19/17 05:09 02/18/17 06:07 - ABG Interpretation ABG results: PT/INR, D-dimer PT 25.9 Seconds (9.4-12.1) H 02/20/17 08:23 Consult Discharge Plan - Plan Referrals: Gurwinder Lopez [Other] - 02/23/17 10:00 am (This is the new office. It is located beside [facility])
[2017-02-20] MEDS: clonazePAM 0.5 MG TABLET PO PRN ×2 (16:29→21:50)
[2017-02-20] MEDS: Famotidine 20 MG TABLET PO SCH (16:29)
[2017-02-20] MEDS ORDERED: *HR* Warfarin 2 MG TABLET PO ONE (18:00)
[2017-02-20] MEDS: Mirtazapine 15 MG TABLET PO SCH (21:50)
[2017-02-21] MEDS: clonazePAM 0.5 MG TABLET PO PRN (02:31)
[2017-02-21 04:29] LABS: INR 2.4; Prothrombin Time 25.8 Seconds (9.4-12.1)
[2017-02-21 04:34] LABS: Basophils # 0.1 K/mcL (0.0-0.2); Basophils % 1.2 %; Eosinophils # 0.3 K/mcL (0.0-0.6); Eosinophils % 3.7 %; Hematocrit 35.1 % (37.5-50.1); Hemoglobin 11.3 g/dL (12.9-16.9); Immature Granulocytes % 0.9 % (0-4); Lymphocytes # 1.6 K/mcL (0.6-4.6); Mean Corpuscular HGB Conc 32.2 g/dL (31.6-35.5); Mean Corpuscular Hemoglobin 28.2 pg (28.0-33.3); Mean Corpuscular Volume 87.5 fL (83.0-100.0); Mean Platelet Volume 10.2 fL (9.4-12.4); Monocytes # 0.6 K/mcL (0.0-1.3); Monocytes % 8.3 %; Neutrophils # 4.3 K/mcL (1.6-8.9); Platelet Count 287 K/mcL (140-400); Red Blood Count 4.01 M/mcL (4.19-5.50); Segmented Neutrophils % 62.9 %
[2017-02-21 04:42] LABS: BUN/Creatinine Ratio 13 (6-26); Blood Urea Nitrogen 13 mg/dL (8-26); Calcium 8.9 mg/dL (8.6-10.8); Carbon Dioxide 25 mEq/L (19-29); Chloride 103 mEq/L (98-109); Glucose 136 mg/dL (70-99); Osmolality,Calculated 288 (280-300); Potassium 3.4 mEq/L (3.5-4.5); Sodium 138 mEq/L (136-145); eGFR For African Americans > 60 (> 60); eGFR For Non-African Americans > 60 (> 60)
[2017-02-21 07:26] VITALS: BP 148/90
[2017-02-21] MEDS: sulfaSALAzine 500 MG TABLET PO SCH (07:47)
[2017-02-21] MEDS: Aspirin Enteric Coated 81 MG Tablet PO SCH (07:48)
[2017-02-21] MEDS: Metoprolol XL (24 HR) Succ 50 MG TAB.ER.24H PO SCH (07:48)
[2017-02-21] MEDS: Finasteride 5 MG TABLET PO SCH (07:48)
[2017-02-21] MEDS: Lactobacillus 1 EACH CAP.SPRINK PO SCH (07:48)
[2017-02-21] MEDS: Isosorbide MONOnitrate (24 HR) 30 MG TAB.ER.24H PO SCH (07:48)
[2017-02-21] MEDS: Heparin 25,000 UNIT/500 ML D5W 25,000 UNIT/500 ML MLS IVC SCH (07:49)
--- NOTE | 2017-02-21 11:58 | Discharge Summary ---
Date of Encounter: 02/21/17 Time of Encounter: 10:55 - Discharge Diagnosis (1) Pulmonary embolism Priority: Primary Status: Acute Comments: Acute pulmonary embolism - distal main right pulmonary artery extending into the lobar and segmental branches of the right upper, middle and lower lobes Continue Coumadin, INR is therapeutic Patient does not qualify for home oxygen Need to monitor INR regularly Qualifiers: Pulmonary embolism type: other Chronicity: acute Acute cor pulmonale presence: without acute cor pulmonale Qualified Code(s): I26.99 - Other pulmonary embolism without acute cor pulmonale (2) DVT (deep venous thrombosis) Priority: Primary Status: Acute Comments: Acute DVT of right great saphenous vein Continue Coumadin Qualifiers: DVT location: lower extremity Affected thrombotic vein of extremity: other lower extremity vein Chronicity: acute Laterality: right Qualified Code(s) : I82.491 - Acute embolism and thrombosis of other specified deep vein of right lower extremity (3) Acute respiratory failure with hypoxia Priority: Primary Status: Acute Comments: Secondary to acute PE - now improved Agent is doing well on room air, O2 sat 93% (4) Proctitis Priority: Secondary Status: Chronic Comments: History of proctitis and IBD, patient is on sulfasalazine - no acute flareup (5) CAD (coronary artery disease) Priority: Secondary Status: Chronic Comments: Coronary artery disease status post CABG - stable Continue home meds Qualifiers: Coronary Disease-Associated Artery/Lesion type: [place] artery [place] vs. transplanted heart: [place] heart Associated angina: without angina Qualified Code(s): I25.10 - Atherosclerotic heart disease of [place] coronary artery without angina pectoris - Discharge Medications Prescriptions: Warfarin [Coumadin] 3 mg PO 1800 #30 tablet Home Medications: Aspirin Enteric Coated [Aspirin EC] 81 mg PO DAILY 02/15/17 [History] Atorvastatin Calcium [Lipitor] 80 mg PO HS 02/15/17 [History] Buspirone HCl [Buspar] 5 mg PO BID 02/15/17 [History] Famotidine [Pepcid] 40 mg PO DAILY 02/15/17 [History] Finasteride [Proscar] 5 mg PO DAILY 02/15/17 [History] Isosorbide MONOnitrate (24 HR) [Imdur] 60 mg PO DAILY 02/15/17 [History] L. Acidophilus/Pectin, [place] [Acidophilus Probiotic Capsule] 1 each PO DAILY [History] Metoprolol XL (24 HR) Succ [Toprol Xl] 50 mg PO DAILY 02/15/17 [History] Mirtazapine [Remeron] 15 mg PO HS 02/15/17 [History] Pantoprazole Sodium [Protonix] 40 mg PO DAILY 02/15/17 [History] Sertraline [Zoloft] 100 mg PO DAILY 02/15/17 [History] Sulfasalazine [Azulfidine] 1,000 mg PO TID 02/15/17 [History] Tamsulosin [Flomax] 0.4 mg PO DAILY 02/15/17 [History] clonazePAM [Klonopin] 0.5 mg PO BID PRN 02/15/17 [History] Warfarin [Coumadin] 3 mg PO 1800 #30 tablet 02/21/17 [Rx] Allergies/Adverse Reactions: 3 Allergy/AdvReac Type Severity Reaction Status Date / Time No Known Allergies Allergy Verified 11/26/16 14:43 Date of admission: 02/15/17 19:34 Primary care physician: Gurwinder Lopez MD Consults: 02/16/17 09:10 Consult to [facility] [CONS] Routine Reason for SW Consult: pt responsible for care of at home. Anticipated date of discharge: 02/21/17 - Patient Status Disposition: Home, Self-Care Condition: Good Functional capacity at discharge: independent ambulation Overall status at discharge: patient is progressing back to baseline - Discharge Instructions Instructions: Warfarin (By mouth), Pulmonary Embolism (DC) Follow Up With: Gurwinder Lopez [Other] - 02/23/17 10:00 am (This is the new office. It is located beside of [facility]) anticoagulation, clinic [Other] - 02/23/17 2:30 pm (across from [facility]) Additional Instructions: - Continue all meds as per discharge instructions - Return symptoms worsen - Check INR regularly - Follow up with PCP regularly - Coumadin dose to be adjusted by PCP First class at the Coumadin Clinic is 1 hour. Please bring your bottle of coumadin and a list of the medications you are taking. - Diet and Activity Activity: increase activity as tolerated, resume usual activities as tolerated Diet: advance to your usual diet, low fat, low cholesterol Hospital course: Mr. Holley is a 71 year old male with past medical history of coronary artery disease, hyperlipidemia, hypertension and depression. He presented to the ED with complaints of shortness of breath. Patient was diagnosed with acute pulmonary embolism. Patient was started slowly on IV and then started on warfarin. Patient did have acute respiratory failure with hypoxia secondary to PE. This is now improved. Patient also has a history of colitis and proctitis and diabetes. He takes sulfasalazine, but he did not have a flareup at this time. Patient's PT and INR are therapeutic at this time. He has been advised to continue his Coumadin. He will need to follow-up with the anticoagulation clinic for his Coumadin dose adjustment. Patient also had a Doppler extremity shows DVT of the great saphenous vein on the right side. Patient tolerated all his meds well. At this time he is able to ambulate and able to tolerate oral diet well. Patient denies chest pain or shortness of breath. States he feels better. He wants to go home today. He had no acute events or complications during his stay in the hospital. Patient has been excellent about his condition and plan acute detail. He understood and agreed. No unanswered questions. Patient has been advised to return if symptoms worsen. - Time Spent with Patient Total time spent providing and/or coordinating discharge services: Greater than 30 minutes - Constitutional Vitals: Temp Pulse Resp BP Pulse Ox 98.4 F 64 12 148/90 93 02/21/17 07:24 02/21/17 11:11 02/21/17 07:24 02/21/17 07:24 02/21/17 07:24 General appearance: Present: A&O X 3, pleasant, no acute distress, obese, answers questions appropriately - Head Head exam: Present: atraumatic - Eye Eye exam: Present: EOMI - ENT ENT exam: Present: mucous membranes moist - Respiratory Respiratory exam: Present: CTAB. Absent: rales, rhonchi, wheezes, tachypnea - Cardiovascular Cardiovascular exam: Present: RRR, +S1, +S2 - GI/Abdominal GI/Abdominal exam: Present: soft. Absent: distended, firm, guarding, tenderness - Extremities Exam Extremities exam: Present: radial pulses palpable and symmetrical. Absent: calf tenderness, cyanotic, pedal edema - Neurological Exam Neurological exam: Present: alert, oriented X3, no focal deficits. Absent: facial droop, speech deficit
[2017-02-21] MEDS ORDERED: *HR* Warfarin 3 MG TABLET PO SCH (18:00)
== END 2017-02-21 13:00 | disposition home or self-care (01) | DRG 175 ==
LOC: EMEROO 13:38 → 2NNU 13:38
PROVIDERS: ADMIT Family Medicine; ATTEND Internal Medicine